=== PATIENT | female | born 1980 | race Caucasian/White ===

== ENCOUNTER 2020-06-19 20:16 | Emergency (ER) | payer OTHER ==
[2020-06-19 20:21] VITALS: BP 126/85; PULSE 99; RESP 20; TEMP 99.6
[2020-06-19 21:17] LABS: Basophils # (A) 0.1 k/uL (0-0.2); Basophils % (A) 1 %; Eosinophils # (A) 0.2 k/uL (0-0.7); Eosinophils % (A) 2 %; HCT 23.7 % (34.0-46.0); HGB 7.6 gm/dL (11.4-16.0); Hypochromasia Moderate; Lymphocytes # (A) 1.3 k/uL (1.0-4.8); Lymphocytes % (A) 16 %; MCH 28.9 pg (25.0-35.0); MCHC 32.1 g/dL (31.0-37.0); MCV 90.1 fL (80.0-100.0); Mean Platelet Volume 6.7; Monocytes # (A) 0.3 k/uL (0-1.0); Monocytes % (A) 4 %; Neutrophils # (A) 6.4 k/uL (1.3-7.7); Neutrophils % (A) 76 %; Platelet Count 432 k/uL (150-450); Poikilocytosis Marked; RBC 2.64 m/uL (3.80-5.40); RDW 15.2 % (11.5-15.5); WBC 8.4 k/uL (3.8-10.6)
[2020-06-19 21:23] LABS: Appearance,Urine Clear (Clear); Bacteria,Urine Rare /hpf; Bilirubin,Urine Negative (Negative); Blood,Urine Moderate (Negative); Color,Urine Light Yellow; Glucose,Urine (UA) Negative (Negative); Ketones,Urine Negative (Negative); Leukocyte Esterase,Urine Trace (Negative); Mucus,Urine Rare /hpf; Nitrite,Urine Negative (Negative); PH, Urine 6.5 (5.0-8.0); Protein,Urine Negative (Negative); RBC,Urine 38 /hpf (0-5); Specific Gravity,Urine 1.005 (1.001-1.035); Squamous Epithelial Cell,Urine <1 /hpf (0-4); Urobilinogen,Urine <2.0 mg/dL (<2.0); WBC,Urine 2 /hpf (0-5)
[2020-06-19 21:26] LABS: ALT 14 U/L (4-34); AST 20 U/L (14-36); African American GFR (CKD) >90 (>60 ml/min/1.73 sqM); Albumin 4.2 g/dL (3.5-5.0); Alkaline Phosphatase 47 U/L (38-126); Anion Gap 6 mmol/L; Blood Urea Nitrogen 10 mg/dL (7-17); Calcium 9.7 mg/dL (8.4-10.2); Carbon Dioxide 27 mmol/L (22-30); Chloride 106 mmol/L (98-107); Glucose 108 mg/dL (74-99); Non-African American GFR(CKD) 89 (>60 ml/min/1.73 sqM); Potassium 4.6 mmol/L (3.5-5.1); Sodium 139 mmol/L (137-145); Total Bilirubin 0.2 mg/dL (0.2-1.3); Total Protein 7.1 g/dL (6.3-8.2)
[2020-06-19 21:42] LABS: HCG,Quantitative Serum 1376.9 mIU/mL
--- NOTE | 2020-06-19 22:00 | ED ---
Female Urogenital HPI - General Chief complaint: Vaginal Bleeding Stated complaint: Vaginal Bleeding Time Seen by Provider: 06/19/20 20:22 Source: patient, family Mode of arrival: ambulatory Limitations: no limitations - History of Present Illness Initial comments: Patient is a 39-year-old female presenting to the emergency Department with complaints of increased vaginal bleeding that started today. Patient had a miscarriage approximately 10 days ago, at approximately 10 weeks along. Her RETIREMENT CONSULTANT is out of [facility], Dr. Medina. . Patient states she had some mild bleeding and cramping during the early stages, then she developed heavy vaginal bleeding earlier this week. Patient did go to [facility] 4 days ago with complaints of heavy vaginal bleeding, lightheadedness and low blood pressure. Patient was admitted and stayed overnight with a hemoglobin of 7.5. She did not receive a transfusion. She was discharged. She states that the bleeding has been very light and she's been feeling fine until this evening. Patient states about 3 hours prior to arrival she started passing large clots again and having bright red bleeding. Patient states at this time she believes the bleeding has decreased some but she still feels like she is passing clots. She denies any abdominal pain, no cramping, no dizziness that she does feel little lightheaded. She denies any chest pain, shortness of breath no fever or chills. She has no further complaints at this time. Last Menstrual Period: 03/18/20 - Related Data Home Medications Medication Instructions Recorded Confirmed No Known Home Medications 06/19/20 06/19/20 Allergies Allergy/AdvReac Type Severity Reaction Status Date / Time No Known Allergies Allergy Verified 06/19/20 22:13 Review of Systems ROS Statement: Those systems with pertinent positive or pertinent negative responses have been documented in the HPI. ROS Other: All systems not noted in ROS Statement are negative. Past Medical History Past Medical History: No Reported History History of Any Multi-Drug Resistant Organisms: None Reported Past Surgical History: No Surgical Hx Reported Past Psychological History: No Psychological Hx Reported Smoking Status: Never smoker Past Alcohol Use History: None Reported Past Drug Use History: None Reported General Exam - General Exam Comments Initial Comments: GENERAL: Patient is well-developed and well-nourished. Patient is nontoxic and in no acute distress. HEAD: Atraumatic, normocephalic. EYES: Pupils equal round and reactive to light, extraocular movements intact, sclera anicteric, conjunctiva are normal. Eyelids were unremarkable. ENT: TMs normal, nares patent, oropharynx clear without exudates. Moist mucous membranes. NECK: Normal range of motion, supple without lymphadenopathy or JVD. LUNGS: Unlabored respirations. Breath sounds clear to auscultation bilaterally and equal. No wheezes rales or rhonchi. HEART: Regular rate and rhythm without murmurs, rubs or gallops. ABDOMEN: Soft, nontender, normoactive bowel sounds. No guarding, no rebound. No masses appreciated. MUSCULOSKELETAL: Normal extremities with adequate strength and normal range of motion, no pitting or edema. No clubbing or cyanosis. NEUROLOGICAL: Patient is alert and oriented x 3. Motor and sensory are also intact. Cranial nerves II through XII grossly intact. Symmetrical smile. Normal speech, normal gait. PSYCH: Normal mood, normal affect. SKIN: Warm, Dry, normal turgor, no rashes or lesions noted. Limitations: no limitations External exam: Present: normal external exam Speculum exam: Present: vaginal bleeding, other (Blood clots present, cervix appears slightly open). Absent: foreign body Course Vital Signs 06/19/20 20:17 Temperature 99.6 F Pulse Rate 99 Respiratory 20 Rate Blood Pressure 126/85 O2 Sat by Pulse 100 Oximetry Medical Decision Making - Medical Decision Making Patient is a 39-year-old female here for increase in vaginal bleeding appro ximately 3-4 hours prior to arrival. She had a miscarriage 10 days ago at approximately 10 weeks along. , RETIREMENT CONSULTANT is Dr. Medina out of [facility]. She was admitted overnight at [facility] 4 days ago for low hemoglobin, vaginal bleeding. Her vital signs upon arrival are stable today. Her exam does reveal blood clots, normal blood in the vaginal vault, no active bleeding. Patient's hemoglobin is stable 7.6, this is up from her previous stay. Ultrasound today shows a thickened endometrial stripe, possibly retained products of conception, no IUP is noted, no signs of ovarian torsion. I discussed these findings with the patient. She is stable for discharge. She will follow-up with her RETIREMENT CONSULTANT tomorrow morning. Strict return parameters were discussed with the patient she verbalized understanding. Case discussed Dr. Carpio. - Lab Data Result diagrams: 06/19/20 21:09 12/25/20 21:09 Lab Results 06/19/20 06/19/20 06/19/20 Range/Units 21:08 21:09 21:09 WBC 8.4 (3.8-10.6) k/uL RBC 2.64 L (3.80-5.40) m/uL Hgb 7.6 L (11.4-16.0) gm/dL Hct 23.7 L (34.0-46.0) % MCV 90.1 (80.0-100.0) fL MCH 28.9 (25.0-35.0) pg MCHC 32.1 (31.0-37.0) g/dL RDW 15.2 (11.5-15.5) % Plt Count 432 (150-450) k/uL MPV 6.7 Neutrophils % 76 % Lymphocytes % 16 % Monocytes % 4 % Eosinophils % 2 % Basophils % 1 % Neutrophils # 6.4 (1.3-7.7) k/uL Lymphocytes # 1.3 (1.0-4.8) k/uL Monocytes # 0.3 (0-1.0) k/uL Eosinophils # 0.2 (0-0.7) k/uL Basophils # 0.1 (0-0.2) k/uL Hypochromasia Moderate Poikilocytosis Marked Sodium 139 (137-145) mmol/L Potassium 4.6 (3.5-5.1) mmol/L Chloride 106 (98-107) mmol/L Carbon Dioxide 27 (22-30) mmol/L Anion Gap 6 mmol/L BUN 10 (7-17) mg/dL Creatinine 0.83 (0.52-1.04) mg/dL Est GFR (CKD-EPI)AfAm >90 (>60 ml/min/1.73 sqM) Est GFR (CKD-EPI)NonAf 89 (>60 ml/min/1.73 sqM) Glucose 108 H (74-99) mg/dL Calcium 9.7 (8.4-10.2) mg/dL Total Bilirubin 0.2 (0.2-1.3) mg/dL AST 20 (14-36) U/L ALT 14 (4-34) U/L Alkaline Phosphatase 47 (38-126) U/L Total Protein 7.1 (6.3-8.2) g/dL Albumin 4.2 (3.5-5.0) g/dL HCG, Quant 1376.9 mIU/mL Urine Color Urine Appearance (Clear) Urine pH (5.0-8.0) Ur Specific [place] (1.001-1.035) Urine Protein (Negative) Urine Glucose (UA) (Negative) Urine Ketones (Negative) Urine Blood (Negative) Urine Nitrite (Negative) Urine Bilirubin (Negative) Urine Urobilinogen (<2.0) mg/dL Ur Leukocyte Esterase (Negative) Urine RBC (0-5) /hpf Urine WBC (0-5) /hpf Ur Squamous Epith Cells (0-4) /hpf Urine Bacteria (None) /hpf Urine Mucus (None) /hpf Blood Type Blood Type Confirm O Positive Blood Type Recheck Bld Type Recheck Status Antibody Screen Spec Expiration Date 06/19/20 06/19/20 Range/Units 21:09 21:09 WBC (3.8-10.6) k/uL RBC (3.80-5.40) m/uL Hgb (11.4-16.0) gm/dL Hct (34.0-46.0) % MCV (80.0-100.0) fL MCH (25.0-35.0) pg MCHC (31.0-37.0) g/dL RDW (11.5-15.5) % Plt Count (150-450) k/uL MPV Neutrophils % % Lymphocytes % % Monocytes % % Eosinophils % % Basophils % % Neutrophils # (1.3-7.7) k/uL Lymphocytes # (1.0-4.8) k/uL Monocytes # (0-1.0) k/uL Eosinophils # (0-0.7) k/uL Basophils # (0-0.2) k/uL Hypochromasia Poikilocytosis Sodium (137-145) mmol/L Potassium (3.5-5.1) mmol/L Chloride (98-107) mmol/L Carbon Dioxide (22-30) mmol/L Anion Gap mmol/L BUN (7-17) mg/dL Creatinine (0.52-1.04) mg/dL Est GFR (CKD-EPI)AfAm (>60 ml/min/1.73 sqM) Est GFR (CKD-EPI)NonAf (>60 ml/min/1.73 sqM) Glucose (74-99) mg/dL Calcium (8.4-10.2) mg/dL Total Bilirubin (0.2-1.3) mg/dL AST (14-36) U/L ALT (4-34) U/L Alkaline Phosphatase (38-126) U/L Total Protein (6.3-8.2) g/dL Albumin (3.5-5.0) g/dL HCG, Quant mIU/mL Urine Color Light Yellow Urine Appearance Clear (Clear) Urine pH 6.5 (5.0-8.0) Ur Specific [place] 1.005 (1.001-1.035) Urine Protein Negative (Negative) Urine Glucose (UA) Negative (Negative) Urine Ketones Negative (Negative) Urine Blood Moderate H (Negative) Urine Nitrite Negative (Negative) Urine Bilirubin Negative (Negative) Urine Urobilinogen <2.0 (<2.0) mg/dL Ur Leukocyte Esterase Trace H (Negative) Urine RBC 38 H (0-5) /hpf Urine WBC 2 (0-5) /hpf Ur Squamous Epith Cells <1 (0-4) /hpf Urine Bacteria Rare H (None) /hpf Urine Mucus Rare H (None) /hpf Blood Type O Positive Blood Type Confirm Blood Type Recheck No Previous Record Bld Type Recheck Status CABO Indicated Antibody Screen NEGATIVE Spec Expiration Date 06/22/2020 - 2308 Disposition Clinical Impression: Vaginal bleeding, Incomplete Disposition: HOME SELF-CARE Condition: Stable Instructions (If sedation given, give patient instructions): Dysfunctional Uterine Bleeding (ED) Additional Instructions: Please return to the Emergency Department if symptoms worsen or any other concerns. Follow-up with your RETIREMENT CONSULTANT as discussed. Is patient prescribed a controlled substance at d/c from ED?: No Referrals: Katie Pickens MD [Primary Care Provider] - 1-2 days
--- NOTE | 2020-06-19 22:14 | US ---
EXAM: US Pelvis Transabdominal Limited, Pelvis Transvaginal and US Duplex Arterial/Venous of the Pelvis CLINICAL HISTORY: ITS.REASON US Reason: miscarriage x 10 days ago, increased bleeding toda TECHNIQUE: Real-time limited transabdominal and transvaginal pelvic ultrasound with image documentation. Transvaginal imaging was used for better evaluation of the endometrium and adnexa. Real-time duplex ultrasound scan of the arterial and venous flow of the pelvis with color Doppler flow and spectral waveform analysis. COMPARISON: No previous studies. FINDINGS: Uterus/cervix: The uterus measures 9.2 x 5.4 x 5.1 cm. The endometrial stripe is thickened and heterogeneous measuring approximately 3 cm in width. Possible retained products of conception extending from the endometrial regions of the cervical canal. No myometrial mass. Right ovary: Right ovary measures 2.2 x 2.2 x 2 cm. 1.6 x 1.4 x 1.3 cm probable right ovarian corpus luteum cyst. Flow is demonstrated to both ovaries. No torsion. Left ovary: Left ovary measures 2.3 x 1.3 x 2.2 cm. No free fluid. Free fluid: See above. Bladder: Unremarkable as visualized. Wall is normal thickness for degree of distention. Other findings: No intrauterine gestation is detected. Early intrauterine or ectopic gestation cannot be excluded. IMPRESSION: 1. Thickened heterogeneous endometrial stripe possibly the basis of retained products of conception. 2. No intrauterine gestation is noted. 3. Early intrauterine or ectopic gestation cannot be excluded. 4. Clinical correlation and correlation with laboratory values are advised. 5. Flow to both ovaries noted. 6. Possible right ovarian corpus luteum cyst.
== END 2020-06-19 23:16 | disposition home or self-care (01) ==
LOC: EC 20:16
DX: O03.4 Incomplete spontaneous abortion without complication (principal); Z87.59 Personal history of other complications of pregnancy, childbirth and the puerperium
CPT/HCPCS: 36415; 76801; 76817; 80053; 81001; 84702; 85025; 86850; 86900; 86901; 99284